=== PATIENT | male | born 1990 | race Caucasian/White ===

== ENCOUNTER 2016-06-29 11:53 | Emergency (ER) | payer OTHER ==
[~2016-06-29] VITALS: Ht 175.3 cm; Wt 106.8 kg
[~2016-06-29 11:53] MED LIST: ATEN-173 PO; CLON1TAB3 PO; PRLSR20 PO
[2016-06-29 12:00] VITALS: Ht 175.3 cm; Wt 106.8 kg
[2016-06-29] MEDS ORDERED: IBUPROFEN 600 MG TAB ONE (12:10)
[2016-06-29] MEDS ORDERED: IBUPROFEN 600 MG TAB PO STA (12:11)
--- NOTE | 2016-06-29 12:59 | DIAGNOSTIC IMAGING REPORT ---
RIGHT KNEE 3 VIEWS CLINICAL HISTORY: Right knee pain status post trauma COMPARISON: 01/28/2015 DISCUSSION: No acute fractures are visualized. There are STIR 3. Changes present most pronounced the medial joint compartment. On the lateral view, there is a 1 cm bony fragment projected superior to the patella. I would favor this being old. IMPRESSION: 1. 1 cm bony density projected superior to the patella the lateral view. I would favor this being old 2. No acute fractures are visualized on conventional radiographic imaging 3. Osteoarthritic changes Electronically signed by: Francesco Garcia M.D. 06/29/2016 12:57 PM Dictated Date/Time: 06/29/2016 12:55 PM
[2016-06-29] MEDS ORDERED: DICL-201 PO (13:45)
--- NOTE | 2016-06-29 13:46 | EMERGENCY ROOM VISIT NOTE ---
ED Visit Note First contact with patient: 13:01 Chief Complaint: RIGHT Knee Injury History of Present Illness: Patient is a 25 year-old who presents to the emergency department for evaluation of his ongoing RIGHT knee pain. He initially injured his knee over a year ago. He stopped going to his pain management provider 6 months ago at his own reported advice. He reports that over the last few days he's had increasing pain to the anterior surface of the affected knee. He did fall a few days ago while attempting to catch his child. He's had increasing pain since. He denies any numbness or tingling into the distal extremity. He rates his current discomfort as a 7/10. He is tried nothing for his current discomfort. He denies any associated hip pain, ankle pain, or foot pain. Medications: Reviewed and discussed with the patient. Allergies: Acetaminophen, hydrocodone, tramadol PMH: As above. SHx: Patient is a 25-year-old male who lives locally. ROS: All pertinent positive and negative review of systems are appropriately documented in the History of Present Illness. Physical Exam: VITAL SIGNS - Vital signs and nursing notes were reviewed. GENERAL - 25-year-old male appearing his stated age and in noticeable discomfort throughout the exam. MUSCULOSKELETAL - RIGHT knee without erythema, edema, and ecchymosis. Subjective tenderness to palpation appreciated over the anterior surface of the knee. +5/5 strength appreciated bilaterally. No posterior sag sign. RANGE OF MOTION: Greater than 100 Flexion with 0 Extension. PATELLAR APPREHENSION TEST: Unremarkable. VARUS/VALGUS STRESS: Unremarkable. NEUROLOGIC/VASCULAR - Neurovascularly intact distally with +3/5 dorsalis pedis pulses palpated bilaterally. Normal sensation to light and sharp touch appreciated distally. IMAGING: RIGHT KNEE 3 VIEWS CLINICAL HISTORY: Right knee pain status post trauma COMPARISON: 01/28/2015 DISCUSSION: No acute fractures are visualized. There are STIR 3. Changes present most pronounced the medial joint compartment. On the lateral view, there is a 1 cm bony fragment projected superior to the patella. I would favor this being old. IMPRESSION: 1. 1 cm bony density projected superior to the patella the lateral view. I would favor this being old 2. No acute fractures are visualized on conventional radiographic imaging 3. Osteoarthritic changes ED Course: Patient was seen and evaluated by myself. Patient was provided an ice pack for comfort. X-rays were obtained of the affected knee. Imaging results as above. Images were discussed and reviewed with the patient who acknowledges understanding. Patient has been through pain management with this knee in the past. I do not feel that he warrants narcotic pain medication for ongoing condition treatment. He will be provided diclofenac for use at home. He has appointment with orthopedics for follow-up. He will return for any changing or worsening symptoms. Patient discharged home in good condition. Impression: RIGHT Knee Pain Discharge Instructions: You have been treated in the Emergency Department for Knee Pain. You have been prescribed Diclofenac. This is an anti-inflammatory medication used to help decrease your symptoms and improve your pain. Please take this medication as prescribed. It is best to take this medication with food. Please to not take this antibiotic with other NSAIDS including: Ibuprofen, Naproxen, Advil, Motrin, Aspirin, Aleve, Celebrex, etc. For pain control, you can use the following [id number] medicines (if >12 yo): - Regular strength (325mg/tab) Tylenol (acetaminophen) 2 tabs every 4-6 hours as needed. Do not exceed 12 tablets in a 24 hour period. Avoid taking more than 4 grams (4000 mg) of Tylenol per day. This includes any other sources of acetaminophen you may take on a regular basis. If this is a recent injury (<24 hrs), ice can be applied to the area of pain for the first 3 days to help decrease pain and inflammation. Ice massages can be performed by freezing water in a paper cup, peeling back the cup to expose the ice and then massaging over the affected area. Please follow-up with your orthopedic surgeon as scheduled. Return to the Emergency Department if your current symptoms worsen despite treatment course outlined above. Problem List Medical Problems: (1) Anxiety Status: Chronic (2) Anxiety Status: Resolved (3) Asthma Status: Chronic (4) Hypertension Status: Chronic (5) Knee effusion, right Status: Resolved (6) PAC (premature atrial contraction) Status: Chronic (7) Palpitations Status: Resolved (8) Stress Status: Resolved Current/Historical Medications Scheduled Atenolol (Tenormin), 25 MG PO DAILY Diclofenac (Voltaren), 75 MG PO BID Omeprazole (Prilosec), 20 MG PO DAILY Allergies Coded Allergies: Acetaminophen (Verified Adverse Reaction, Intermediate, N/V, 06/29/16) Hydrocodone (Verified Adverse Reaction, Intermediate, N/V, 06/29/16) Tramadol (Verified Adverse Reaction, Intermediate, N/V, 06/29/16) WHEN TAKEN WITH ATENOLOL Vital Signs Date Time Temp Pulse Resp B/P Pulse Ox O2 Delivery O2 Flow Rate FiO2 06/29/16 13:52 36.9 84 18 151/83 97 06/29/16 13:52 85 20 124/79 97 06/29/16 12:00 36.9 84 18 151/83 97 Room Air Medications Administered Medications (Trade) Dose Ordered Sig/Nicci Route Start Time Stop Time Status Last Admin Dose Admin Ibuprofen (Motrin Tab) 600 mg NOW STAT PO 06/29/16 12:11 06/29/16 12:12 DC 06/29/16 12:13 600 MG Departure Information Impression Primary Impression: Knee pain, right anterior Dispostion Home / Self-Care Condition GOOD Prescriptions Diclofenac (Voltaren) 75 Mg Tabcr 75 MG PO BID for 7 Days, #14 TAB WITH FOOD Prov: Nathaniel Corea, IGGY 06/29/16 Referrals No Doctor, Assigned (PCP) Patient Instructions [facility] Additional Instructions You have been treated in the Emergency Department for Knee Pain. You have been prescribed Diclofenac. This is an anti-inflammatory medication used to help decrease your symptoms and improve your pain. Please take this medication as prescribed. It is best to take this medication with food. Please to not take this antibiotic with other NSAIDS including: Ibuprofen, Naproxen, Advil, Motrin, Aspirin, Aleve, Celebrex, etc. For pain control, you can use the following [id number] medicines (if >12 yo): - Regular strength (325mg/tab) Tylenol (acetaminophen) 2 tabs every 4-6 hours as needed. Do not exceed 12 tablets in a 24 hour period. Avoid taking more than 4 grams (4000 mg) of Tylenol per day. This includes any other sources of acetaminophen you may take on a regular basis. If this is a recent injury (<24 hrs), ice can be applied to the area of pain for the first 3 days to help decrease pain and inflammation. Ice massages can be performed by freezing water in a paper cup, peeling back the cup to expose the ice and then massaging over the affected area. Please follow-up with your orthopedic surgeon as scheduled. Return to the Emergency Department if your current symptoms worsen despite treatment course outlined above.
[2016-06-29 13:52] VITALS: BP 124/79; PULSE 85; TEMP 36.9; O2SAT 97
== END 2016-06-29 13:53 | disposition home or self-care (01) ==
LOC: C.EDB 11:54 → C.EDD 13:53
DX: M25.561 Pain in right knee (principal)